=== PATIENT | male | born 1960 | race African-American/Black ===

== ENCOUNTER → 2016-07-01 | Outpatient (CLI) | payer OTHER ==
[~2016-07-01] MED LIST: ALPR1TAB3 PO; LURA1TAB2 PO
[2016-07-01 07:13] LABS: HEMATOCRIT 42.8 % (39.0-51.0); MEAN CELL VOLUME 91.5 FL (80.0-100.0); MEAN CORPUSCULAR HEMOGLOBIN 31.5 PG (27.0-34.0); MEAN CORPUSCULAR HGB CONC 34.5 % (32.0-36.0); PLATELET COUNT 204 TH/MM3 (150-450); RED BLOOD COUNT 4.68 MIL/MM3 (4.50-5.90); RED CELL DISTRIBUTION WIDTH 13.4 % (11.6-17.2); REVIEW FLAG FINAL
[2016-07-01 07:56] LABS: ALKALINE PHOSPHATASE 52 U/L (45-117); HDL CHOLESTEROL 45.8 MG/DL (40.0-60.0); TOTAL BILIRUBIN ADULT 0.3 MG/DL (0.2-1.0)
[2016-07-01 08:05] LABS: ALT (GPT) 31 U/L (12-78); ANION GAP 9 MEQ/L (5-15); AST (GOT) 25 U/L (15-37); BICARBONATE 26.4 MEQ/L (21.0-32.0); BLOOD UREA NITROGEN 15 MG/DL (7-18); CHLORIDE 103 MEQ/L (98-107); GLOMERULAR FILTRATION RATE 71 ML/MIN (>89); GLUCOSE,FASTING 103 MG/DL (74-99); LDL CHOLESTEROL 72 MG/DL (0-99); POTASSIUM 4.4 MEQ/L (3.5-5.1); SODIUM (NA) 138 MEQ/L (136-145)
== END ==
LOC: CLAB 06:50
PROVIDERS: ATTEND Nurse Practitioner Family
DX: F31.9 Bipolar disorder, unspecified (principal)
CPT/HCPCS: 36415; 80053; 80061; 84443; 85027

== ENCOUNTER → 2016-07-16 | Outpatient (CLI) | payer OTHER ==
--- NOTE | 2016-07-16 17:21 | RADRPT ---
EXAM DATE/TIME: 07/16/2016 13:37 [facility] COMPARISON: No previous studies available for comparison. INDICATIONS : Patient complaining swelling of the mandible at the mental area. RADIATION DOSE: 18.50 CTDIvol (mGy) MEDICAL HISTORY : None SURGICAL HISTORY : None. ENCOUNTER: Initial ACUITY: 1 month PAIN SCORE: 0/10 LOCATION: neck TECHNIQUE: Volumetric scanning of the neck was performed. Using automated exposure control and adjustment of th e mA and/or kV according to patient size, radiation dose was kept as low as reasonably achievable to obtain optimal diagnostic quality images. FINDINGS: NASOPHARYNX: The nasopharyngeal airway has a normal configuration. No mucosal thickening or mass is seen. OROPHARYNX: The intrinsic muscles of the tongue are symmetric. The tonsillar pillars are intact. The prevertebr al soft tissues are not thickened. LARYNX: The supraglottic, glottic, and infraglottic structures are intact. PARAPHARYNGEAL: The parapharyngeal space is intact. SALIVARY GLANDS: The parotid and submandibular glands are intact. LYMPH NODES: No enlarged or necrotic-appearing nodes. There are scattered unenlarged submandibular lymph nodes. Th ere is mild soft tissue swelling overlying the mental protuberance without underlying mass or fluid c ollection. THYROID: Homogeneous enhancement without evidence of nodule. BONES: Unremarkable. CONCLUSION: Mild soft tissue swelling overlying the mental protuberance without underlying mass o r fluid collection. Keron Campbell MD on July 16, 2016 at 17:13 Board Certified Radiologist. This report was verified electronically.
== END ==
LOC: HRAD 13:29
PROVIDERS: ATTEND Family Medicine
DX: R22.0 Localized swelling, mass and lump, head (principal)
CPT/HCPCS: 70490

== ENCOUNTER 2017-04-06 10:47 | Emergency (ER) | payer OTHER ==
[~2017-04-06] VITALS: Ht 167.6 cm; Wt 95.0 kg
[2017-04-06 10:50] VITALS: BP 178/98; PULSE 100; RESP 15; TEMP 99; O2SAT 99
[2017-04-06] MEDS ORDERED: ACETAMINOPHEN/HYDROcodone 325 MG/5 MG TAB PO ONE (11:15)
[2017-04-06] MEDS ORDERED: ROBA750T PO (11:19)
--- NOTE | 2017-04-06 11:19 | PD ---
HPI Chief Complaint: Back/ Neck Pain or Injury Time Seen by Provider: 10:55 Travel History International Travel<30 days: No Contact w/Intl Traveler<30days: No Traveled to known affect area: No History of Present Illness HPI The patient's 56 years old and arrives here complaining of low back pain. he's had the pain for years. there is radiation inferiorly on the right side. he followed at [facility] and labwork was essecitally normal aside from elevated glucose on cmp and cbc. no imaging obtained although it was recommended. pain is constant and worse with ambulation. motrin helps minimally at home. no new or different pain. no interval injury. no saddle anesthesia. no hx steroid use on chronic pain or hx malignancy. no diagnosis of diabetes. no fecal urinary/incontinence. PFSH Social History Alcohol Use: No Tobacco Use: No Allergies-Medications (Allergen,Severity, Reaction): Coded Allergies: No Known Allergies (Unverified , 06/30/16) Reported Meds & Prescriptions Reported Meds & Active Scripts Active Robaxin (Methocarbamol) 750 Mg Tab 1,500 Mg PO TID 7 Days Reported Latuda (Lurasidone) 60 Mg Tab 60 Mg PO DAILY Alprazolam 1 Mg Tab 1 Mg PO Q8H PRN Review of Systems General / Constitutional: No: Fever Cardiovascular: No: Chest Pain or Discomfort Neurologic: No: Weakness, Dizziness, Syncope, Focal Abnormalities, Coordination Problem, Ataxia Physical Exam Narrative GENERAL: 56 yo M, WNWD, pleasant SKIN: Warm and dry. HEAD: Atraumatic. Normocephalic. EYES: Pupils equal and round. No scleral icterus. No injection or drainage. ENT: No nasal bleeding or discharge. Mucous membranes pink and moist. NECK: Trachea midline. No JVD. CARDIOVASCULAR: Regular rate and rhythm. RESPIRATORY: No accessory muscle use. Clear to auscultation. Breath sounds equal bilaterally. GASTROINTESTINAL: Abdomen soft, non-tender, nondistended. Hepatic and splenic margins not palpable. MUSCULOSKELETAL: Extremities without clubbing, cyanosis, or edema. No obvious deformities. no focal spinal tenderness. minimal TTP overlying superior aspect R iliac crest. NEUROLOGICAL: Awake and alert. No obvious cranial nerve deficits. Motor grossly within normal limits. Five out of 5 muscle strength in the arms and legs. Normal speech. PSYCHIATRIC: Appropriate mood and affect; insight and judgment normal. Data Data Last Documented VS Vital Signs Date Time Temp Pulse Resp B/P (MAP) Pulse Ox O2 Delivery O2 Flow Rate FiO2 04/06/17 12:23 88 18 154/82 (106) 97 04/06/17 10:50 99.0 VS reviewed Orders Orders Acetamin-Hydrocod 325-5 Mg ([place] 5-325 (04/06/17 11:15) Spine, Lumbar - Ltd (Ap & Lat) (04/06/17 ) Ed Discharge Order (04/06/17 12:10) MDM Medical Decision Making Medical Screen Exam Complete: Yes Emergency Medical Condition: Yes Medical Record Reviewed: Yes Differential Diagnosis epidural abscess, paraspinal hematoma, vertebral body fracture, sciatica Narrative Course presentation c/w sciatica plain film unremarkable multimodal treatment interventions d/w patient pt encouraged to follow up with [facility] Diagnosis Primary Impression: Lumbago with sciatica, right side Qualified Codes: M54.41 - Lumbago with sciatica, right side; G89.29 - Other chronic pain Referrals: Nishant Faulkner MD 2 days Med/Other Pt SpecificInfo: Prescription(s) given Scripts Methocarbamol (Robaxin) 750 Mg Tab 1500 MG PO TID for Muscle Spasm for 7 Days, TAB 0 Refills Prov: Sen Morrow MD 04/06/17 Disposition: 01 DISCHARGE HOME Condition: Stable Sen Morrow MD Apr 06, 2017 11:19
--- NOTE | 2017-04-06 12:13 | RADRPT ---
EXAM DATE/TIME: 04/06/2017 11:54 [facility] COMPARISON: No previous studies available for comparison. INDICATIONS : Lower back pain. MEDICAL HISTORY : None. SURGICAL HISTORY : None. ENCOUNTER: Initial ACUITY: 1 day PAIN SCORE: 10/10 LOCATION: Right lower back FINDINGS: Mild degenerative changes are noted throughout the lumbar spine and lower thoracic spine. No acute co mpression fracture, spondylolisthesis or spondylolysis is noted. CONCLUSION: 1. No acute compression fracture, spondylolisthesis or spondylolysis. 2. Mild degenerative changes throughout the lumbar and lower thoracic spine. Keron Campbell MD on April 06, 2017 at 12:10 Board Certified Radiologist. This report was verified electronically.
[2017-04-06 12:23] VITALS: BP 154/82
== END 2017-04-06 12:24 | disposition home or self-care (01) ==
LOC: NEPD 10:47
DX: M54.41 Lumbago with sciatica, right side (principal); Z79.899 Other long term (current) drug therapy
CPT/HCPCS: 72100; 99284